=== PATIENT | male | born 1990 | race Caucasian/White ===

== ENCOUNTER 2018-01-23 02:40 | Emergency (ER) | payer BC ==
[~2018-01-23] VITALS: Ht 170.2 cm; Wt 86.2 kg
[2018-01-23] MEDS ORDERED: Solu-MEDROL 125mg Inj ONE (02:44)
[2018-01-23] MEDS ORDERED: DiphenhydrAMINE 50mg/ml Inj ONE (02:48)
--- NOTE | 2018-01-23 02:51 | Emergency Room Report ---
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 He presents with severe allergic reaction. He had pizza that has pesto sauce on it. He did not know. Afterward he developed severe redness, shortness of breath and wheezing. 911 was called. EMS gave him 50 mg of Benadryl IV. He was brought here. He still slightly better. No nausea no vomiting. [place] stuffiness. denies any fever chills but never had this severe reaction before. Allergies: Uncoded Allergies: PESTO (Allergy, Unknown, Hives, 01/23/18) FOOD Patient History Past Medical History: see triage record, old chart reviewed Past Surgical History: none Pertinent Family History: none Social History: Denies: smoking Immunizations: other Reviewed Nursing Documentation: PMH: Agreed; PSxH: Agreed Nursing Documentation-PMH Past Medical History: No Stated History Review of Systems Eye: Denies: eye pain, blurred vision ENT: Reports: nose congestion; Denies: ear pain, throat swelling Respiratory: Reports: shortness of breath, wheezing; Denies: cough Cardiovascular: Denies: chest pain, palpitations Gastrointestinal: Denies: abdominal pain, diarrhea, nausea, vomiting Musculoskeletal: Denies: back pain, joint pain Skin: Reports: rash Neurological: Denies: headache, numbness Endocrine: Denies: increased thirst, increased urine Hematologic/Lymphatic: Denies: easy bruising All Other Systems: negative except mentioned in HPI Physical Exam Vital Signs Date Time Temp Pulse Resp B/P (MAP) Pulse Ox O2 Delivery O2 Flow Rate FiO2 01/23/18 02:35 97.6 101 16 142/78 98 Room Air 97.5 vitals normal Sp02 EP Interpretation: reviewed, normal General Appearance: well appearing, no apparent distress, alert Head: normocephalic, atraumatic Eyes: bilateral eye PERRL, bilateral eye EOMI ENT: hearing grossly normal, normal pharynx Neck: full range of motion, supple, no meningismus Respiratory: chest non-tender, wheezing Cardiovascular #1: regular rate, rhythm, no murmur Gastrointestinal: normal bowel sounds, non tender, no mass, no organomegaly, no bruit, non-distended Musculoskeletal: back normal, gait/station normal, normal range of motion Neurologic: alert, oriented x3 Psychiatric: mood/affect normal Skin: warm/dry, rash - diffuse hyperemia and urticaria Medical Decision Making Diagnostic Impression: Primary Impression: Allergic reaction Qualified Codes: T78.40XA - Allergy, unspecified, initial encounter ER Course Patient with severe allergic reaction to food. He felt better now. No longer wheezing. He did not want the epinephrine. We'll discharge home with EpiPen. Last Vital Signs Date Time Temp Pulse Resp B/P (MAP) Pulse Ox O2 Delivery O2 Flow Rate FiO2 01/23/18 02:35 97.6 101 16 142/78 98 Room Air 97.5 Status: improved Disposition: HOME, SELF-CARE Condition: Stable Scripts Epinephrine (Epipen 2-Bjorn) 0.3 Mg/0.3 Ml Auto.injct 0.3 MG IM ONCE, #1 EA Prov: IVETH LAZCANO M.D. 01/23/18 Prednisone* (PREDNISONE*) 20 Mg Tablet 40 MG ORAL DAILY, #6 TAB Prov: IVETH LAZCANO M.D. 01/23/18 Diphenhydramine Hcl* (BENADRYL*) 25 Mg Capsule 50 MG ORAL Q6H PRN for Itching, #30 CAP Prov: IVETH LAZCANO M.D. 01/23/18 Patient Instructions: Food Allergy Additional Instructions: Follow-up with your doctor in 7 days. Return if symptom worsen. IVETH LAZCANO M.D. Jan 23, 2018 02:51
[2018-01-23 02:55] VITALS: BP 123/77
[2018-01-23] MEDS ORDERED: DiphenhydrAMINE 50mg/ml Inj IVP ONE (03:00)
[2018-01-23] MEDS ORDERED: EPINEPHrine 1mg/1ml Amp IM ONE (03:00)
[2018-01-23] MEDS ORDERED: Solu-MEDROL 125mg Inj IVP ONE (03:00)
[2018-01-23] MEDS ORDERED: Albuterol ud Inhalation HHN ONE (03:00)
[2018-01-23] MEDS ORDERED: BENADRYL25 MG ORAL (03:31)
[2018-01-23] MEDS ORDERED: PREDNISONE20 MG ORAL (03:31)
[2018-01-23] MEDS ORDERED: EPIPEN 2-P0.3 MG/0.3 IM (03:31)
[2018-01-23 04:16] VITALS: BP 123/77
== END 2018-01-23 04:17 | disposition home or self-care (01) ==
LOC: EDBD 02:40 → EMR 02:56
DX: T78.40XA Allergy, unspecified, initial encounter (principal); X58.XXXA Exposure to other specified factors, initial encounter; Z91.018 Allergy to other foods
CPT/HCPCS: 94640; 96372; 96374; 96375; 99284; J1200; J2930; J0171